=== PATIENT | female | born 1995 | race Caucasian/White ===

== ENCOUNTER 2016-10-21 09:36 | Emergency (ER) | payer OTHER ==
[2016-10-21 10:27] LABS: BASOPHIL 0.1 % (0-2); EOSINOPHIL 1.4 % (0-5); HGB 13.7 g/dl (12.5-16.0); LYMPHOCYTE 23.3 % (15-48); MCH 31.2 pg (25.0-31.0); MCHC 36.1 g/dL (32.0-36.0); MCV 86.6 fL (78.0-100.0); MONOCYTE 3.5 % (0-12); MPV 11.1 fL (6.0-9.5); NEUTROPHIL 71.7 % (41-80); PLT 212 K/uL (150-400); RBC 4.39 M/uL (4.20-5.40); WBC 7.4 K/uL (4.0-10.5)
== END 2016-10-21 12:50 | disposition home or self-care (01) ==
LOC: FER 09:36
PROVIDERS: Emergency Medicine
DX: O20.0 Threatened abortion (principal); O99.511 Diseases of the respiratory system complicating pregnancy, first trimester; J45.909 Unspecified asthma, uncomplicated; Z3A.12 12 weeks gestation of pregnancy
CPT/HCPCS: 36415; 76817; 84702; 85025; 86850; 86900; 86901

== ENCOUNTER 2021-02-11 16:36 | Emergency (ER) | payer OTHER ==
[~2021-02-11 16:36] MED LIST: NAPROXEN500 MG PO; SKELAXIN800 MG PO
[2021-02-11] MEDS ORDERED: DICLOFENAC SODI75 MG PO (18:03)
[2021-02-11] MEDS ORDERED: CYCLOBENZAPRINE10 MG PO (18:03)
== END 2021-02-11 18:18 | disposition home or self-care (01) ==
LOC: FER 16:36
DX: M54.5 Low back pain (principal); F17.210 Nicotine dependence, cigarettes, uncomplicated; Z88.0 Allergy status to penicillin
CPT/HCPCS: 72100; 96372; J1040; J1885